=== PATIENT | female | born 1940 | race Caucasian/White ===

== ENCOUNTER → 2017-02-19 | Outpatient (CLI) | payer OTHER | LOC: FIMAGING 14:09 | PROVIDERS: ATTEND Physician Assistant | DX: M51.86 Other intervertebral disc disorders, lumbar region (principal); M99.73 Connective tissue and disc stenosis of intervertebral foramina of lumbar region; M51.26 Other intervertebral disc displacement, lumbar region; M89.38 Hypertrophy of bone, other site; M16.11 Unilateral primary osteoarthritis, right hip ==

== ENCOUNTER → 2017-07-18 | Outpatient (CLI) | payer OTHER | LOC: FIMAGING 08:25 | PROVIDERS: ATTEND Internal Medicine Gastroenterology | DX: Z12.11 Encounter for screening for malignant neoplasm of colon (principal); K57.32 Diverticulitis of large intestine without perforation or abscess without bleeding ==

== ENCOUNTER → 2017-08-09 | Outpatient (CLI) | payer OTHER | LOC: FIMAGING 12:45 | PROVIDERS: ATTEND Family Medicine | DX: Z12.39 Encounter for other screening for malignant neoplasm of breast (principal); N63 Unspecified lump in breast | CPT/HCPCS: 76641; G0204 ==

== ENCOUNTER → 2017-08-16 | Outpatient (CLI) | payer OTHER ==
[~2017-08-16] MED LIST: BUPIVACAINE 0.5% 10 ML SDV ONE; LIDO/EPI 1% **Not for Epidural 20 ML MDV ONE; LIDOCAINE 1% 300 MG/30 ML SDV ONE; THROMBIN (BOVINE) 5,000 UNIT VIAL TP ONE
== END ==
LOC: FIMAGING 07:15
PROVIDERS: ATTEND Family Medicine
PROC: 07B63ZX Excision of Left Axillary Lymphatic, Percutaneous Approach, Diagnostic (ICD-10-PCS; principal; 2017-08-16)
PROC: 0HBU3ZX Excision of Left Breast, Percutaneous Approach, Diagnostic (ICD-10-PCS; principal; 2017-08-16)
DX: C50.912 Malignant neoplasm of unspecified site of left female breast (principal)
CPT/HCPCS: 19083; 38505; 88305; 88341; 88342; 88360; 88361; G0206

== ENCOUNTER 2017-09-01 10:36 | Day surgery (SDC) | payer OTHER ==
--- NOTE | 2017-09-01 07:07 | PDHPUP ---
History & Physical Update H&P update statement: This history and physical update is based on an assessment of the patient which was completed after admission or registration (within 24 hours), but prior to the surgery/procedure. H&P update: H&P reviewed & patient examined, no change in patient's condition since H&P completed
--- NOTE | 2017-09-01 08:11 | GHP ---
[f rep st] PREOP HISTORY AND PHYSICAL DATE OF ADMISSION: 09/01/2017 DATE OF SURGERY: 09/01/2017. CHIEF COMPLAINT: Left breast cancer. HISTORY OF PRESENT ILLNESS: The patient is a 76-year-old woman who underwent mammogram on 08/09/2017 for a palpable left breast mass. A spiculated lesion was identified. She underwent ultrasound whic h showed a 3 x 2 mass at the 1 o'clock position of the left breast 6 cm from the nipple. Biopsy perf ormed on 08/16/2017 showed infiltrating ductal carcinoma, grade 2, ER negative, OR negative, HER-2 pe nding. The left axilla also showed involvement of infiltrating ductal carcinoma. There was a commen t that the carcinoma is not definitely associated with the lymph node, it may represent replaced lymp h node or satellite focused carcinoma. Her first menstrual period was at age 13. She had a hysterec stephanie at age 49. She took HRT in the past for a short period of time. She is G2, P2. FAMILY HISTORY: Significant for sister with breast cancer at age 55 status post mastectomy and chemo therapy. Brother with tongue and throat cancer. Sister with aggressive cervical cancer. Father wit h prostate cancer. Grandmother with stomach cancer. PAST MEDICAL HISTORY: Arthritis, chest pain, glaucoma, hypertension, irritable bowel syndrome. PAST SURGICAL HISTORY: Carpal tunnel repair, cataract surgery, hysterectomy, tonsillectomy. MEDICATIONS: Unchanged. ALLERGIES: Penicillin. FAMILY HISTORY: Breast cancer. Other types of cancer as listed above. Father with heart disease an d skin cancer. Mother with hypertension. SOCIAL HISTORY: She reports drinking alcohol 3 times weekly. She is . She denies tobacco or recreational drug use. REVIEW OF SYSTEMS: A 10-point review of systems negative aside from HPI. PHYSICAL EXAMINATION: GENERAL: Well-developed, well-nourished woman in no acute distress. HEENT: Normocephalic, atraumatic. No hearing deficits. Pupils equal and round. No scleral icterus. Mucou s membranes moist. NECK: Trachea midline. RESPIRATORY: Clear to auscultation bilaterally. No inc reased work of breathing. CARDIOVASCULAR: Regular rate and rhythm. BREASTS: Exam performed in upr ight and supine position. No ecchymosis. A large mass in the upper outer quadrant of left breast. LYMPH: No cervical, supraclavicular, or axillary lymphadenopathy. MUSCULOSKELETAL: Normal gait. N ormal nails. PSYCH: Mood and affect normal. NEURO: Grossly intact. IMPRESSION AND PLAN: A 76-year-old woman with stage 2B ER/OR negative, HER-2 pending invasive ductal carcinoma of the left breast. She will benefit from neoadjuvant chemotherapy. She would benefit fr om a port for chemotherapy. We discussed risks of surgery including, but not limited to, heart attac k, stroke, blood clots, . We discussed risk of infection, bleeding, pneumothorax and need for d evice removal. She understands the risks and would like to proceed. Anticipate this to be outpatien t procedure. Patient is usually seen by Dr. Ana Marquez. /[id number]/MODL
[2017-09-01] MEDS ORDERED: ceFAZolin 2 GM/SWFI 2 GM/20 ML SYR IVP ONE (10:45)
[2017-09-01] MEDS ORDERED: LIDOCAINE 1% 2 ML INJ ID PRN (10:46)
[2017-09-01] MEDS ORDERED: LR 1,000 ML IV ONE (10:46)
[2017-09-01] MEDS ORDERED: BUPIVACAINE 0.5% 30 ML SDV ONE (10:53)
--- NOTE | 2017-09-01 11:19 | PDANEPAE ---
ANE History of Present Illness 76 yo female with L invasive ductal carcinoma with positive LN. ANE Past Medical History - Cardiovascular History Hx Hypertension: Yes Hx Arrhythmias: No Hx Chest Pain: No Hx Coronary Artery / Peripheral Vascular Disease: No Hx CHF / Valvular Disease: No Hx Palpitations: No - Pulmonary History Hx COPD: No Hx Asthma/Reactive Airway Disease: No Hx Recent Upper Respiratory Infection: No Hx Oxygen in Use at Home: No Hx Sleep Apnea: No Sleep Apnea Screening Result - Last Documented: Negative - Neurologic History Hx Cerebrovascular Accident: No Hx Seizures: No Hx Dementia: No - Endocrine History Hx Diabetes: No Hypothyroid: No - Renal History Hx Renal Disorders: No - Liver History Hx Hepatic Disorders: No - Neurological & Psychiatric Hx Hx Neurological and Psychiatric Disorders: No - Cancer History Hx Cancer: Yes Cancer History Comment: breast Ca left 08/29 - Congenital Disorder History Hx Congenital Disorders: No - GI History Hx Gastrointestinal Disorders: Yes Gastrointestinal History Comment: IBS - Chronic Pain History Chronic Pain: Yes - Surgical History Prior Surgeries: repair tendon Left shoulder 2013. Bilat. thumb arthroplasty ANE Review of Systems Review of systems is: negative Review of Systems: - Exercise capacity METS (RN): 4 METS - Systems Constitutional: Reports: no symptoms Cardiac: Reports: no symptoms Respiratory: Reports: no symptoms ANE Patient History - Allergies Allergies/Adverse Reactions: Penicillins Allergy (Verified 08/10/17 08:11) - Home Medications Home medications: home medication list seen and reviewed Home Medications: CETIRIZINE HCL 10 08/31/17 [Last Taken 08/31/17] Calcium Carb/D3/Magnesium/Zinc 2 DAILY 08/31/17 [Last Taken 08/31/17] Coq-10 100 08/31/17 [Last Taken 08/31/17] Hydrocodon-Acetaminophn 10-325 PRN 08/31/17 [Last Taken 08/31/17] Loperamide HCl 2 PRN 08/31/17 [Last Taken 08/31/17] Loratadine 10 DAILY 08/31/17 [Last Taken 08/31/17] MULTIVITAMINS DAILY 08/31/17 [Last Taken 08/31/17] Magnesium 400 mg DAILY 08/31/17 [Last Taken 08/31/17] Preservision Areds 2 Softgel 2 DAILY 08/31/17 [Last Taken 08/31/17] Probiotic DAILY 08/31/17 [Last Taken 08/31/17] RX: Metoprolol Succinate 100 mg PO 08/31/17 [Last Taken 08/31/17] Vitamin B12 5,000 mcg 08/31/17 [Last Taken 08/31/17] Vitamin D3 5,000 DAILY 08/31/17 [Last Taken 08/31/17] - NPO status NPO Status: no food or drink >8 hours NPO Since - Liquids (Date): 08/31/17 NPO Since - Liquids (Time): 21:00 NPO Since - Solids (Date): 08/31/17 NPO Since - Solids (Time): 18:00 - Anes Hx Anes Hx: no prior problems - Smoking Hx Smoking Status: Never smoked Marijuana use: No - Alcohol Use Alcohol Use: Occasionally (3/week) - Family Anes Hx Family Anes Hx: none Family Hx Anesthesia Complications: none ANE Labs/Vital Signs - Vital Signs Blood Pressure: 158/60 Heart Rate: 56 Respiratory Rate: 16 O2 Sat (%): 92 Height: 162.56 cm Weight: 72.575 kg ANE Physical Exam - Airway Neck exam: FROM Mallampati Score: Class 2 Mouth exam: normal dental/mouth exam - Pulmonary Pulmonary: clear to auscultation - Cardiovascular Cardiovascular: regular rate and rhythym - ASA Status ASA Status: III ANE Anesthesia Plan Anesthesia Plan: GA with mask Total IV Anesthesia: Yes
[2017-09-01] MEDS ORDERED: DEXAMETHASONE 4 MG/ML VIAL ONE ×2 (12:14)
[2017-09-01] MEDS ORDERED: fentaNYL 100 MCG/2 ML INJ ONE (12:14)
[2017-09-01] MEDS ORDERED: PROPOFOL/EMULSION 500 MG/50 ML BOTTLE IV ONE (12:14)
[2017-09-01] MEDS ORDERED: LIDOCAINE 2% 5 ML SDV ONE (12:14)
[2017-09-01] MEDS ORDERED: LIDOCAINE 1% 300 MG/30 ML SDV ONE (12:31)
[2017-09-01] MEDS ORDERED: NALOXONE HCL 0.4 MG/ML INJ IVP PRN (12:50)
[2017-09-01] MEDS ORDERED: fentaNYL 100 MCG/2 ML INJ IVP PRN (12:50)
[2017-09-01] MEDS ORDERED: HYDROCODONE/APAP 5/325 TAB PO PRN (12:50)
[2017-09-01] MEDS ORDERED: PROMETHAZINE HCL 25 MG/ML INJ IVP PRN (12:50)
[2017-09-01] MEDS ORDERED: LR 500 ML IV PRN (12:50)
[2017-09-01] MEDS ORDERED: ONDANSETRON 4 MG/2 ML VIAL IVP PRN (12:50)
--- NOTE | 2017-09-01 12:59 | POSTOPPROG ---
Post Op Note Date of Operation: 09/01/17 Surgeon: Ana Marquez Anesthesiologist: toan Anesthesia: IV Sedation Pre-op Diagnosis: l breast ca Post-op Diagnosis: same Indication: 76 yo with l breast ca Procedure: r us IJ port Inf/Abcess present in the surg proc area at time of surgery?: No Depth: Superfical (Skin SQ) EBL: Minimal
[2017-09-01 14:14] VITALS: BP 163/52; PULSE 60; RESP 14
[2017-09-01 14:26] VITALS: TEMP 98.2
[2017-09-01 14:27] VITALS: O2SAT 96
--- NOTE | 2017-09-02 00:14 | GOP ---
[f rep st] OPERATIVE REPORT DATE OF OPERATION: 09/01/2017 SURGEON: Ana Marquez MD ANESTHESIA: Monitored anesthesia care with IV sedation. ANESTHESIOLOGIST: Dr. Gregoria Erazo. PREOPERATIVE DIAGNOSIS: Left breast cancer. POSTOPERATIVE DIAGNOSIS: Left breast cancer. PROCEDURE PERFORMED: Right ultrasound-guided internal jugular PowerPort placement. FINDINGS: Tip in SVC. SPECIMENS: None. ESTIMATED BLOOD LOSS: 10 cc. INDICATIONS: The patient is a 76-year-old with left breast cancer. She will require a port for chem otherapy. DESCRIPTION OF PROCEDURE: The patient was brought into the operating room, placed supine on the tabl e. Monitored anesthesia care with IV sedation was performed. Her bilateral neck and chest were prep ped and draped in the usual sterile fashion. I infiltrated the area on her right chest and neck with 1% lidocaine mixed with 0.5% Marcaine. I accessed her internal jugular vein with dark return of blo od flow. I threaded the guidewire and removed the needle. Placement was confirmed with fluoroscopy. I created a pocket to accommodate the port in the right chest. I tunneled this up to the insertion site. I measured the catheter and cut it to size. Using the Seldinger technique, I placed a dilato r and sheath over the wire. I removed the wire and the dilator. I threaded the catheter through the sheath and peeled away the sheath. Placement was confirmed with fluoroscopy. The pocket was closed with 3-0 Vicryl followed by 4-0 Monocryl. Dermabond applied. Post-procedure chest x-ray showed the port in good position without evidence of pneumothorax. /[id number]/MODL
== END 2017-09-01 14:45 | disposition home or self-care (01) ==
LOC: FSGY 10:36
PROVIDERS: ATTEND Surgery
DX: C50.412 Malignant neoplasm of upper-outer quadrant of left female breast (principal); Z17.1 Estrogen receptor negative status [ER-]; I10 Essential (primary) hypertension; Z80.3 Family history of malignant neoplasm of breast; Z80.49 Family history of malignant neoplasm of other genital organs; Z88.0 Allergy status to penicillin
CPT/HCPCS: C1788; J0690; J1100; J1642; J2704; J3010

== ENCOUNTER → 2017-09-13 | Outpatient (CLI) | payer OTHER ==
[~2017-09-13] MED LIST changes: -BUPIVACAINE 0.5% 10 ML SDV ONE; +GADOBUTROL 10 ML VIAL IVP ONE; -LIDO/EPI 1% **Not for Epidural 20 ML MDV ONE; -LIDOCAINE 1% 300 MG/30 ML SDV ONE; -THROMBIN (BOVINE) 5,000 UNIT VIAL TP ONE
== END ==
LOC: FIMAGING 12:25
PROVIDERS: ATTEND Internal Medicine Hematology & Oncology
DX: C50.412 Malignant neoplasm of upper-outer quadrant of left female breast (principal)
CPT/HCPCS: 0159T; A9585; C8908

== ENCOUNTER → 2017-10-30 | Outpatient (CLI) | payer OTHER | LOC: FIMAGING 13:09 | PROVIDERS: ATTEND Internal Medicine Hematology & Oncology | DX: R07.81 Pleurodynia (principal); Z85.3 Personal history of malignant neoplasm of breast ==

== ENCOUNTER → 2017-11-01 | Outpatient (CLI) | payer OTHER ==
[~2017-11-01] MED LIST changes: -GADOBUTROL 10 ML VIAL IVP ONE; +IOPAMIDOL (ISOVUE 370) 100 ML BTL IV ONE
== END ==
LOC: FIMAGING 08:26
PROVIDERS: ATTEND Nurse Practitioner
DX: R07.89 Other chest pain (principal); C50.412 Malignant neoplasm of upper-outer quadrant of left female breast; K76.89 Other specified diseases of liver; R59.0 Localized enlarged lymph nodes
CPT/HCPCS: 71275; Q9967

== ENCOUNTER → 2017-11-07 | Outpatient (CLI) | payer OTHER ==
[~2017-11-07] MED LIST changes: +GADOBUTROL 10 ML VIAL IVP ONE; -IOPAMIDOL (ISOVUE 370) 100 ML BTL IV ONE
== END ==
LOC: FIMAGING 12:47
PROVIDERS: ATTEND Nurse Practitioner
DX: C50.412 Malignant neoplasm of upper-outer quadrant of left female breast (principal)
CPT/HCPCS: 0159T; A9585; C8908

== ENCOUNTER → 2018-01-05 | Outpatient (CLI) | payer OTHER | LOC: FIMAGING 10:39 | PROVIDERS: ATTEND Nurse Practitioner | DX: C50.412 Malignant neoplasm of upper-outer quadrant of left female breast (principal) | CPT/HCPCS: 0159T; A9585; C8908 ==

== ENCOUNTER 2018-02-02 06:29 | Day surgery (SDC) | payer OTHER ==
[2018-02-02] MEDS ORDERED: LR 1,000 ML IV ONE (06:56)
[2018-02-02] MEDS ORDERED: VANCOMYCIN HCL/NORMAL SALINE 250 ML IV ONE (07:11)
[2018-02-02] MEDS ORDERED: ceFAZolin 2 GM/SWFI 2 GM/20 ML SYR IVP ONE (07:27)
--- NOTE | 2018-02-02 07:33 | GHP ---
[f rep st] PREOP HISTORY AND PHYSICAL DATE OF ADMISSION: 02/02/2018 CHIEF COMPLAINT: Left breast cancer. HISTORY OF PRESENT ILLNESS: The patient is a 77-year-old woman who was diagnosed with left breast ca ncer. She completed neoadjuvant chemotherapy. She had a repeat breast MRI on 01/05/2018, which show s near complete resolution of the left spiculated central left breast mass, compatible of complete or near-complete treatment response. No evidence of contralateral malignant disease, resolution of enl arged left axillary lymph node. She does not take blood thinners. She will continue to receive Herc eptin and will need her port. She presents at this time for lumpectomy with lymph node biopsy. PAST MEDICAL HISTORY: Arthritis, breast cancer, glaucoma, hypertension, irritable bowel syndrome. PAST SURGICAL HISTORY: Carpal tunnel repair, cataract surgery, hysterectomy, tonsillectomy. FAMILY HISTORY: Significant for breast cancer, heart disease, hypertension, ovarian cancer, prostate cancer and skin cancer. SOCIAL HISTORY: She uses alcohol. She is . She denies tobacco or recreational drug use. Sh e exercises. ALLERGIES: Penicillin. REVIEW OF SYSTEMS: A 10-point review of systems is negative aside from HPI. PHYSICAL EXAMINATION: GENERAL: Well-developed, well-nourished woman, in no acute distress. Alopeci a. HEENT: Normocephalic, atraumatic. No hearing deficits. Pupils equal and round. No scleral ict erus. Mucous membranes moist. NECK: Trachea midline. RESPIRATORY: Clear to auscultation bilatera lly. No increased work of breathing. CARDIOVASCULAR: Regular rate and rhythm. No peripheral edema . LYMPH: No palpable cervical, supraclavicular, axillary lymphadenopathy. BREASTS: Exam performed in upright and supine position, ridge of dense tissue in the upper outer left breast, but no discret e mass, 2 o'clock position, 5 cm from the nipple. She has a right chest power port. PSYCH: Mood an d affect normal. NEURO: Grossly intact. IMPRESSION AND PLAN: The patient is a 77-year-old woman with left breast cancer, who had completed n eoadjuvant chemotherapy with completed or near complete resolution of her left breast mass. She will go to the operating room for a left breast lumpectomy, with a left sentinel lymph node biopsy, as we ll as an excisional biopsy of the previously biopsied left axillary lymph node. This will also be ne edle localized. We discussed risks of surgery, including but not limited to, heart attack, stroke, b lood clots or . We discussed risk of infection, bleeding, damage to surrounding structures, nee d for additional procedures, swelling. She understands the risks and would like to proceed. The pat ient was additionally evaluated by Dr. Ana Marquez. /[id number]/MODL
[2018-02-02] MEDS ORDERED: LIDOCAINE 1% 300 MG/30 ML SDV ONE ×3 (07:44→09:33)
[2018-02-02] MEDS ORDERED: BUPIVACAINE 0.5% 30 ML SDV ONE (09:24)
[2018-02-02] MEDS ORDERED: PROPOFOL/EMULSION 500 MG/50 ML BOTTLE IV ONE (09:31)
[2018-02-02] MEDS ORDERED: fentaNYL 100 MCG/2 ML INJ ONE ×3 (09:31→12:19)
--- NOTE | 2018-02-02 09:33 | PDANEPAE ---
ANE Past Medical History - Cardiovascular History Hx Hypertension: Yes Hx Arrhythmias: No Hx Chest Pain: No Hx Coronary Artery / Peripheral Vascular Disease: No Hx CHF / Valvular Disease: No Hx Palpitations: No - Pulmonary History Hx COPD: No Hx Asthma/Reactive Airway Disease: No Hx Recent Upper Respiratory Infection: No Hx Oxygen in Use at Home: No Hx Sleep Apnea: No Sleep Apnea Screening Result - Last Documented: Negative - Neurologic History Hx Cerebrovascular Accident: No Hx Seizures: No Hx Dementia: No - Endocrine History Hx Diabetes: No - Renal History Hx Renal Disorders: No - Liver History Hx Hepatic Disorders: No - Neurological & Psychiatric Hx Hx Neurological and Psychiatric Disorders: No - Cancer History Hx Cancer: Yes Cancer History Comment: breast Ca left 08/29 - Congenital Disorder History Hx Congenital Disorders: No - GI History Hx Gastrointestinal Disorders: Yes Gastrointestinal History Comment: IBS with diahhrea - Other Health History Other Health History: chronic runny nose - Chronic Pain History Chronic Pain: Yes (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 Bilat. thumb arthroplasty ANE Review of Systems Review of Systems: - Exercise capacity METS (RN): 3 METS ANE Patient History - Allergies Allergies/Adverse Reactions: Penicillins Allergy (Verified 02/01/18 16:03) - Home Medications Home Medications: CETIRIZINE HCL 10 08/31/17 [Last Taken 08/31/17] Calcium Carb/D3/Magnesium/Zinc 2 DAILY 08/31/17 [Last Taken 02/02/18] Coq-10 100 08/31/17 [Last Taken 02/02/18] Hydrocodon-Acetaminophn 10-325 PRN 08/31/17 [Last Taken 02/02/18] Loperamide HCl 2 PRN 08/31/17 [Last Taken 08/31/17] Loratadine 10 DAILY 08/31/17 [Last Taken 08/31/17] MULTIVITAMINS DAILY 08/31/17 [Last Taken 02/02/18] Magnesium 400 mg DAILY 08/31/17 [Last Taken 02/02/18] Metoprolol Succinate 100 mg PO 08/31/17 [Last Taken 02/02/18] Preservision Areds 2 Softgel 2 DAILY 08/31/17 [Last Taken 02/02/18] Probiotic DAILY 08/31/17 [Last Taken 02/02/18] Vitamin B12 5,000 mcg 08/31/17 [Last Taken 02/02/18] Vitamin D3 5,000 DAILY 08/31/17 [Last Taken 02/02/18] - NPO status NPO Since - Liquids (Date): 02/01/18 NPO Since - Liquids (Time): 20:00 NPO Since - Solids (Date): 02/01/18 NPO Since - Solids (Time): 17:00 - Smoking Hx Smoking Status: Never smoked - Family Anes Hx Family Hx Anesthesia Complications: none ANE Labs/Vital Signs - Vital Signs Blood Pressure: 136/63 Heart Rate: 62 Respiratory Rate: 16 O2 Sat (%): 97 Height: 162.56 cm Weight: 68.039 kg ANE Physical Exam - Airway Neck exam: FROM Mallampati Score: Class 2 Mouth exam: normal dental/mouth exam - Pulmonary Pulmonary: no respiratory distress - Cardiovascular Cardiovascular: regular rate and rhythym - ASA Status ASA Status: II ANE Anesthesia Plan Total IV Anesthesia: Yes
[2018-02-02] MEDS ORDERED: LIDOCAINE 2% 100 MG/5 ML SYR ONE (09:34)
--- NOTE | 2018-02-02 10:58 | POSTOPPROG ---
Post Op Note Date of Operation: 02/02/18 Surgeon: Ana Marquez Machine Adjuster: dale Anesthesiologist: kingston Anesthesia: GET(General Endotracheal) Pre-op Diagnosis: L breast ca Post-op Diagnosis: same Indication: 77yo F with L breast ivasive ductal carcinoma. [id number] positive Procedure: L lumpectomy, L axillary dissection Findings: clip in axillary specimen. Inf/Abcess present in the surg proc area at time of surgery?: No EBL: Minimal Complications: none immediately postoperatively Drains: Israel Tao Specimen(s): L lumpectomy L additional margins L axillary contents
[2018-02-02] MEDS ORDERED: ONDANSETRON 4 MG/2 ML VIAL IVP PRN (11:20)
[2018-02-02] MEDS ORDERED: ALBUTEROL 3 ML DEYVIAL IH PRN (11:20)
[2018-02-02] MEDS ORDERED: NALOXONE HCL 0.4 MG/ML INJ IVP PRN (11:20)
[2018-02-02] MEDS ORDERED: ACETAMINOPHEN 500 MG TAB PO PRN (11:20)
[2018-02-02] MEDS ORDERED: oxyCODONE IR 5 MG TAB PO PRN (11:20)
--- NOTE | 2018-02-02 11:21 | POSTANESTH ---
Post Anesthetic Evaluation Cardiovascular Status: Similar to Pre-Op Cond Respiratory Status: Similar to Pre-op Cond. Level of Consciousness/Mental Status: Mildly Sleepy, Arousable Pain Control: Adequate, Prn Tx Ordered Nausea/Vomiting Control: Adequate, Prn Tx Ordered Complications Possibly Related to Anesthesia: None Noted
[2018-02-02] MEDS: fentaNYL 100 MCG/2 ML INJ IVP PRN ×3 (11:30→11:58)
[2018-02-02 12:06] VITALS: RESP 13
[2018-02-02] MEDS ORDERED: HYDROCODONE/APAP 5/325 TAB ONE ×2 (12:19→13:07)
[2018-02-02] MEDS: HYDROCODONE/APAP 5/325 TAB PO PRN ×2 (12:20→13:13)
[2018-02-02 12:48] VITALS: TEMP 97.7
[2018-02-02 12:59] VITALS: BP 149/54; PULSE 63; O2SAT 97
--- NOTE | 2018-02-04 09:18 | GOP ---
[f rep st] OPERATIVE REPORT DATE OF OPERATION: 02/02/2018 SURGEON: Ana Marquez MD ADULT PROBATION OFFICER: Rosemarie Camarena, LASHAUN. ANESTHESIA: General. ANESTHESIOLOGIST: Tylor Motley MD. PREOPERATIVE DIAGNOSIS: Left breast cancer. POSTOPERATIVE DIAGNOSIS: Left breast cancer. PROCEDURE PERFORMED: Left needle localized lumpectomy with left axillary dissection. FINDINGS: Clip and axillary specimen. She had extra clips in the axillary specimen and the clip fro m her lumpectomy was not observed. SPECIMENS: Left lumpectomy, left additional margin, left axillary contents. ESTIMATED BLOOD LOSS: Minimal. INDICATIONS: The patient is a 77-year-old woman, who was found to have yaz positive breast cancer. She underwent neoadjuvant therapy. Her imaging showed near resolution of the tumor. DESCRIPTION OF PROCEDURE: The patient was brought into the operating room, placed supine on the tabl e, and general anesthesia was administered. Her left breast and axilla were prepped and draped in th e usual sterile fashion. I infiltrated all sites with 0.5% Marcaine prior to making incisions. I ma de an ellipse around the needle in her left upper outer quadrant, and I created superior and inferior skin flaps and I dissected down beyond the level of the wire. This was marked green anterior, red s uperior, yellow medial, blue inferior, orange lateral, black posterior. This was submitted to Radiol ogy. The wire was within the specimen but the clip was not observed. I took additional margins inke d red superior, yellow medial, blue inferior, orange lateral, black posterior. I swept my finger in the cavity and there was an additional area of firmness and I also grasped this and marked the new po sterior green. Hemostasis was achieved in the cavity. I made an incision beneath the hair bearing p ortion on her axilla. I dissected down through the subcutaneous space. I broke into the axillary sp judd. I identified the axillary vein superior and I identified the thoracodorsal bundle and protecte d this from harm. I also protected the long thoracic nerve. There were several palpable lymph nodes in this area. I grasped them with Allis clamps and removed them. This was submitted to Radiology. Interestingly, this specimen had the clip that was previously identified with the lymph node as well as another clip. I believe that transfer happened from an instrument. Hemostasis was achieved in t his cavity. A 15 round silicone drain was placed in the axilla and sutured into place with 3-0 nylon . Each wound was closed with 3-0 Vicryl followed by 4-0 Monocryl. Mastisol, Steri-Strips and steril e dressings were applied. She was awakened in the operating room, extubated, transferred to PACU in stable condition. DRAINS: Demetra. /[id number]/MODL
== END 2018-02-02 14:02 | disposition home or self-care (01) ==
LOC: FIMAGING 06:29
PROVIDERS: ATTEND Surgery
PROC: 0HHU3YZ Insertion of Other Device into Left Breast, Percutaneous Approach (ICD-10-PCS; 2018-02-02)
PROC: 07B60ZZ Excision of Left Axillary Lymphatic, Open Approach (ICD-10-PCS; principal; 2018-02-02 12:45)
PROC: 0HBU0ZZ Excision of Left Breast, Open Approach (ICD-10-PCS; principal; 2018-02-02 12:45)
DX: C50.412 Malignant neoplasm of upper-outer quadrant of left female breast (principal); Z17.0 Estrogen receptor positive status [ER+]; D64.81 Anemia due to antineoplastic chemotherapy; I10 Essential (primary) hypertension; H40.9 Unspecified glaucoma; K58.9 Irritable bowel syndrome, unspecified; Z82.49 Family history of ischemic heart disease and other diseases of the circulatory system; Z80.41 Family history of malignant neoplasm of ovary; Z80.3 Family history of malignant neoplasm of breast; Z78.0 Asymptomatic menopausal state; Z88.0 Allergy status to penicillin
CPT/HCPCS: J0690; J2001; J2704; J3010; J3370

== ENCOUNTER → 2018-08-16 | Outpatient (CLI) | payer OTHER | LOC: FIMAGING 13:02 | PROVIDERS: ATTEND Nurse Practitioner | DX: R22.32 Localized swelling, mass and lump, left upper limb (principal); C50.412 Malignant neoplasm of upper-outer quadrant of left female breast ==

== ENCOUNTER → 2018-10-18 | Outpatient (CLI) | payer OTHER | LOC: FIMAGING 10:11 | PROVIDERS: ATTEND Internal Medicine Hematology & Oncology | DX: Z08 Encounter for follow-up examination after completed treatment for malignant neoplasm (principal); N64.59 Other signs and symptoms in breast; C50.912 Malignant neoplasm of unspecified site of left female breast ==